=== PATIENT | male | born 1940 | race Caucasian/White ===

== ENCOUNTER 2019-10-24 11:39 | Outpatient (CLI) | payer MEDICARE ==
[~2019-10-24 11:39] MED LIST: Magnevist 469MG/ML 20 ML VIAL ONE
--- NOTE | 2019-10-24 16:09 | MRI ---
MR OF THE ABDOMEN WITH AND WITHOUT CONTRAST: 10/24/19 INDICATION: History of cholelithiasis, prostate cancer and lower GI bleed. TECHNIQUE: Multiplanar and multisequence MR images were obtained in the abdomen with and without contrast utiliz ing 17 mL of Multihance. Respiratory motion artifact heavily degrades image detail on the exam. FINDINGS: There is moderate cardiomegaly. There is a small pericardial effusion. There is focus of susceptibility seen within the lateral left hepatic lobe on image 23 of series 8 wh ich is nonspecific and may reflect a focal hepatic calcification such as a granuloma. This measures approximately 1.5 cm in size. No additional focal hepatic lesion is evident. There are prominent gallstones within the gallbladder. Both measuring 4.2 cm. No pericholecystic flui d is evident. The degree of respiratory motion artifact limits evaluation of the common bile duct or intraluminal stones; however, it is suspected that the patient does have choledocholithiasis at the l evel of the mid common bile duct with the stone measuring approximately 0.7 x 1.5 cm on image 13 of s eries 2. Smaller additional stones are suspected within the mid to distal common bile duct. The commo n bile duct is dilated measuring up to 9 mm. There is some mild intrahepatic biliary ductal dilatatio n. The main pancreatic duct is of normal caliber. Visualized aspect of the adrenal glands are normal appearing. Bilateral renal cysts. The spleen measu res 11.8 cm. No lymphadenopathy or free fluid is identified. No definite marrow signal abnormality is noted. IMPRESSION: 1. Cholelithiasis and choledocholithiasis with mild intrahepatic and extrahepatic biliary ductal dilatation. 2. Focus of susceptibility artifact within the left hepatic lobe may reflect a tiny calcified gr anuloma. 3. Bilateral renal cysts. 4. Limitations to the exam. POS: [facility]
== END 2019-10-24 11:40 | disposition home or self-care (01) ==
LOC: MRI 11:39
PROVIDERS: ATTEND Internal Medicine Gastroenterology
DX: C61 Malignant neoplasm of prostate (principal); K80.20 Calculus of gallbladder without cholecystitis without obstruction; R94.5 Abnormal results of liver function studies; R63.4 Abnormal weight loss; K76.89 Other specified diseases of liver; K92.2 Gastrointestinal hemorrhage, unspecified; K80.50 Calculus of bile duct without cholangitis or cholecystitis without obstruction; N28.1 Cyst of kidney, acquired
CPT/HCPCS: 74183; A9579

== ENCOUNTER 2019-10-27 10:20 | Inpatient (IN) | payer MEDICARE ==
[~2019-10-27 10:20] MED LIST changes: +Glycopyrrolate 0.2 MG/ML 5 ML SYRINGE ONE; +Lidocaine 1% PF 5 ML VIAL ONE; -Magnevist 469MG/ML 20 ML VIAL ONE; +Ondansetron PF 4 MG/2 ML Vial ONE; +PHENYLEPHRINE-NS 100 MCG/ML 10 ML SYRINGE ONE; +PROPOFOL 200 MG/20 ML VIAL ONE; +Rocuronium Bromide 10 MG/ML (10ML VIAL) ONE; +Succinylcholine Chloride 20 MG/ML 10 ml SYRINGE FS ONE
[2019-10-27] MEDS ORDERED: Iothalamate Meglumine 60% 30 ML VIAL FS ONE ×2 (11:41→14:33)
[2019-10-27 13:31] VITALS: BMI 30.2
[2019-10-27] MEDS ORDERED: Dextrose 5% in Water 1,000 ML IV SCH (13:45)
[2019-10-27] MEDS ORDERED: HumaLOG 300 UNITS/3 ML VIAL SC PRN (13:46)
[2019-10-27] MEDS ORDERED: Dextrose 50% Abboject 50 ML SYRINGE SLOW IVP PRN (13:46)
[2019-10-27] MEDS ORDERED: Dextrose 5% in Water 1,000 ML IV PRN (13:46)
--- NOTE | 2019-10-27 14:30 | HP ---
CHIEF COMPLAINT: Gallstone. HISTORY OF PRESENT ILLNESS: He is an 79-year-old male, who is a direct admission from [facility]/Dr. Gaston, for choledocholithiasis. The patient and his provide the history of a few weeks of abnormal liver function tests, and fevers associated with activities as high 103 degrees. They state that he has been seen by a general surgeon, by primary care, and was referred to Dr. Gaston due to an abnormal CT scan demonstrating gallstones. As part of the workup, the patient underwent an MRCP on Sunday, which shows choledocholithiasis. The patient was contacted to come to the hospital today for ERCP. The patient and his report back pain that have been ongoing for few years, that has been attributed to a nerve problem in his neck. They noticed that he has lost at least 10 pounds since the beginning of the year. They also note that he has some dyspnea on exertion, however, that has worsened over the past week or so. They deny any nausea, vomiting, diarrhea, or chest pain. Denies any significant lower extremity swelling, they report that it is managed with Lasix. PAST MEDICAL HISTORY: 1. Coronary artery disease with history of an AK. 2. Lower GI bleed with history of colectomy. 3. Diverticulosis. 4. Prostate cancer. 5. Diabetes mellitus, diet-controlled. 6. Peripheral neuropathy. 7. Dyslipidemia. 8. Memory changes -per patient's , degree unknown PAST SURGICAL HISTORY: 1. CABG. 2. Colectomy. 3. Appendectomy. SOCIAL HISTORY: The patient is . Denies any tobacco. Uses one beer per day, his is his surrogate decision maker and he is a full code. ALLERGIES: NO KNOWN ALLERGIES TO MEDICATION. CURRENT MEDICATIONS: Reconciled with the list provided by the patient's ; 1. Aspirin 81 mg daily. 2. Atorvastatin 20 mg at bedtime. 3. Carvedilol 3.125 mg b.i.d. 4. Ferrous sulfate 325 mg daily. 5. Finasteride 5 mg at bedtime. 6. Folic acid 1 mg at bedtime. 7. Furosemide 40 mg in the morning and at noon. 8. Gabapentin 300 mg daily. 9. Lisinopril 5 mg at bedtime. 10. Potassium chloride 20 mEq daily. 11. Tamsulosin 0.4 mg at bedtime. 12. Vitamin B12 50 mcg at bedtime. 13. Prolia injection every 6 months. 14. Lupron injection every 6 months. FAMILY HISTORY: Significant for cancer. REVIEW OF SYSTEMS: Positive for back pain, worsening dyspnea on exertion, unintentional weight loss of at least 10 pounds this year. Negative for nausea, vomiting, diarrhea, chest pain. All remaining review of systems are reviewed and negative. PHYSICAL EXAMINATION: VITAL SIGNS: Blood pressure 124/74, temperature 98.1, pulse 81, respirations 16 , sat 95% on room air. GENERAL: Awake, alert, responsive, in no apparent distress, able to speak in full sentences. HEENT: Pupils are equal and round. No noted scleral icterus. Oral mucosa is pink and slightly dry. NECK: Supple. Nontender. LYMPHATICS: No palpable cervical or supraclavicular lymphadenopathy. LUNGS: Clear to auscultation bilateral with good air movement. HEART: Normal S1 and S2. Regular rate and rhythm. No significant murmur. ABDOMEN: Soft, present bowel sounds, non-tender, nondistended. EXTREMITIES: No pitting edema. VASCULAR: 2+ radial pulses. SKIN: No visible rashes. NEUROLOGIC: No focal deficits. PSYCH: Appears euthymic. LABORATORY DATA: There is no labs in our system available for review. MRCP report reviewed, which demonstrates choledocholithiasis and cholelithiasis with mild intrahepatic and extrahepatic biliary ductal dilatation, focus of susceptibility artifact within the left hepatic lobe may be a tiny calcified granuloma, bilateral renal cysts. IMPRESSION: 1. Choledocholithiasis with intermittent fevers concerning for infection such as cholangitis or cholecystitis. 2. Coronary artery disease, asymptomatic. 3. History of lower GI bleed, status post colectomy, asymptomatic. 4. Prostate cancer, undergoing treatment. 5. Diabetes mellitus, diet-controlled. 6. Peripheral neuropathy. 7. Dyslipidemia. PLAN: 1. Inpatient status in the hospital due to concern for infection, and need for cultures and antibiotics. 2. Consultation with Dr. Bills, who plans ERCP. 3. Blood cultures, starting on Zosyn due to concern for fevers and infection, following cultures. 4. Obtain current labs including CBC, CMP, INR, blood cultures, UA and urine culture. 5. Continuing the appropriate usual home medications when the patient can take p.o. 6. Gentle IV fluid hydration. 7. N.p.o. until procedure if it is going to be today. 8. Accuchecks and sliding scale insulin if needed. 8. DVT prophylaxis. The patient is ambulatory. Hold on pharmacologic DVT prophylaxis due to procedure. 9. GI prophylaxis not indicated. 10. Code status is full. Surrogate decision maker is the patient's . The patient is at high risk given age comorbidities and current presentation to include the fevers. As we need to monitor blood cultures, monitor for fever, treat with antibiotics and ERCP to evaluate and hopefully treat the choledocholithiasis, thus patient is being placed in inpatient status. Reviewed the plan of care with Dr. Bills, the patient and his . No questions or further needs. Job ID: [id number] MTDD
[2019-10-27] MEDS ORDERED: Indomethacin 50 MG SUPP ONE (14:35)
[2019-10-27 14:53] LABS: INR-International Normal Ratio 0.9; Prothrombin Time 12.3 SEC (12.0-14.7)
[2019-10-27] MEDS: Furosemide 40 MG TAB PO SCH (14:55)
[2019-10-27] MEDS ORDERED: Fentanyl 100 MCG/2 ML VIAL ONE (15:04)
[2019-10-27 15:10] LABS: ALT (SGPT) 33 U/L (8-55); AST (SGOT) 28 U/L (5-34); Alkaline Phosphatase 337 U/L (40-110); Anion Gap 13 mmol/L (10-20); BUN (Urea Nitrogen) 13 mg/dL (8.4-25.7); Bilirubin, Total 1.9 mg/dL (0.2-1.2); Calc. Creatinine Clearance 84 mL/min (70-130); Calcium 9.2 mg/dL (7.8-10.44); Carbon Dioxide 26 mmol/L (23-31); Chloride 102 mmol/L (98-107); Estimated GFR-MDRD 88; Globulin 3.8 g/dL (2.4-3.5); Glucose 112 mg/dL (83-110); Lipase 14 U/L (8-78); Potassium 4.2 mmol/L (3.5-5.1); Protein, Total 7.8 g/dL (5.8-8.1); Sodium 137 mmol/L (136-145)
[2019-10-27 15:12] LABS: #Eosinphils 0.2 thou/uL (0.0-0.7); #Lymphocytes 1.7 thou/uL (1.20-3.40); #Monocytes 0.7 thou/uL (0.11-0.59); #Neutrophils 3.6 thou/uL (1.40-6.50); %Basophils 0.3 % (0.0-1.0); %Eosinophils 3.9 % (0.0-10.0); %Lymphocytes 26.6 % (21.0-51.0); %Monocytes 11.7 % (0.0-10.0); %Neutrophils 57.6 % (42.0-75.0); Hemoglobin 12.9 g/dL (14.0-18.0); Mean Corpuscular HGB CONC 33.8 g/dL (32.0-36.0); Mean Corpuscular Hemoglobin 34.1 pg (27.0-31.0); Mean Platelet Volume 7.2 fL (7.4-10.4); Platelet Count 109 thou/uL (130-400); RBC Distribution Width 12.7 % (11.5-14.5); Red Blood Cell (RBC) Count 3.77 mill/uL (4.70-6.10); White Blood Cell (WBC) Count 6.3 thou/uL (4.8-10.8)
[2019-10-27] MEDS ORDERED: Piperacillin/Tazobactam 3.375 GM VIAL ONE (15:21)
[2019-10-27] MEDS: Sodium Chloride 0.9% 1,000 ML IV SCH ×2 (15:21→18:25)
[2019-10-27] MEDS ORDERED: Sodium Chloride 0.9% 100 ML ONE (15:21)
[2019-10-27 15:59] LABS: Bilirubin Negative (Negative); Blood, Urine Negative (Negative); Clarity Clear (Clear); Glucose, Urine (Dipstick) Normal (Negative); Leukocyte Negative Leu/uL (Negative); Nitrite Negative (Negative); Protein, Urine (Dipstick) 20 mg/dL (Neg-Trace); Urobilinogen Normal mg/dL (Less than 2)
--- NOTE | 2019-10-27 16:40 | RAD ---
ERCP 9 views: 10/27/2019 HISTORY: 79-year-old male with choledocholithiasis and cholelithiasis. FINDINGS: Total of 9 fluoroscopic spot images submitted. Initial image demonstrates contrast partially filling the common bile duct and common hepatic duct, with thin catheter reaching superiorly into one of the branches of the hepatic ducts. There are multiple filling defects consistent with multiple calcul i within the common duct demonstrated on recent MRCP. Subsequent images demonstrate inflation of the balloon near the level of the cystic duct takeoff, then being swept inferiorly. The final image d emonstrates an unusual finding of a horizontal array of 3 tiny filling defects in the inferior portion of the common bile duct, slightly superior to the ampulla. It is uncertain whether these repr esent residual tiny calculi, air bubbles, or less likely artifact. No other filling defects are present. There continues to be mild dilation of the common bile duct and common hepatic duct. Partial filling of cystic duct. No dilation of biliary radicles on the final image. The duodenum is not demonstrated on the final image. Therefore, uncertainty whether there is contrast in the duodenum. IMPRESSION: 1. Choledocholithiasis. 2. Balloon sweeping extraction of the choledocholithiasis. 3. Uncertain finding on the final image. See above comments.
[2019-10-27] MEDS ORDERED: Promethazine HCl 25 MG/ML VIAL SLOW IVP PRN (16:45)
[2019-10-27] MEDS ORDERED: Ondansetron HCl/PF 4 MG/2 ML Vial IVP PRN (16:45)
[2019-10-27] MEDS ORDERED: Promethazine HCl 25 MG/ML VIAL IM PRN (16:45)
[2019-10-27] MEDS: Piperacillin/Tazobactam 3.375 GM in Sodium Chloride 0.9% 100 ML IVPB SCH ×2 (17:52→23:43)
[2019-10-27] MEDS: Finasteride 5 MG TAB PO SCH (19:57)
[2019-10-27] MEDS: Carvedilol 3.125 MG TAB PO SCH (19:57)
--- NOTE | 2019-10-27 20:35 | CON ---
DATE OF CONSULTATION: REASON FOR CONSULT: Choledocholithiasis. HISTORY OF PRESENT ILLNESS: Mr. Brice is an 79-year-old gentleman, who was seen by Dr. Gaston on 10/15. Apparently, he has had elevated bilirubin and abnormal LFTs, initially the bilirubin was 3.4 with alk phos of 444 earlier in September. He had lost about 10 pounds, but the main complaint when he had gone to see his doctor, Dr. Coleman, for was that he had been having fevers intermittently for a couple of months up to 103.4. 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 He ultimately had a CAT scan at an outside facility that showed a small aortic aneurysm. It showed apparently gallstones. He had seen a surgeon, Dr. Humphrey, in the [place], [place], who felt that gallbladder surgery was not a good idea in light of his comorbidities. In talking to the patient, most history comes from the family as he has some dementia, although he is oriented to where he is. He has had fatigue, weight loss about 10 pounds. He has had some right shoulder and back pain, which he has been treating with a topical muscle cream. He has had no overt nausea or vomiting. No overt rigors. They have noticed his urine will be quite dark in the mornings often, but they have not noted any jaundice and he denies any pruritus. Other recent medical issues include history of heart disease, for which he had bypass in 2005. He had [place] in . He has an ejection fraction of 45%. He has AFib and 3 years ago, they were to stop his anticoagulation as he kept having GI bleeds and so he had a Watchman procedure performed. At that same time, he had a partial colectomy 4 to 5 years ago for bleeding. His other active medical issue is prostate cancer, it is being observed over the past 4 to 5 years, but recently he was started on Lupron, finasteride, and tamsulosin. Interestingly, he denies any overt abdominal pain at this time. He denies any dysphagia or odynophagia. Apparently, he has had a chest x-ray with his primary physician, which has been normal and a CAT scan did not reveal malignancy or other abnormalities. Labs on 10/21, he had a white count of 4, hemoglobin 11.5, and platelet count of 102. Comprehensive metabolic profile was notable for a bilirubin of 1.5, alk phos of 418, AST and ALT of 43 and 45. He also had an MR cholangiogram performed on Sunday and that was vastly abnormal with findings of cholelithiasis, choledocholithiasis, intra and extrahepatic ductal dilatation, calcified granuloma in the liver. Some of the images were degraded by motion artifact. I actually have reviewed these films and would agree. The largest gallstones in the gallbladder were 4.2 cm in size. Common bile duct visualization is poor, but the radiologist felt there was choledocholithiasis at the level of the mid common bile duct stone measuring 0.7 x 1.5 cm and some smaller stones in the distal common bile duct. PAST MEDICAL HISTORY: Abdominal aortic aneurysm less than 3 cm, hypertension, hyperlipidemia, previous AZ, prostate cancer, and dementia. PAST SURGICAL HISTORY: Subtotal colectomy in 2015, CABG in 2005, appendectomy in 1950s, Watchman procedure the same year as was the subtotal colectomy, previous cardiac cath with stent, EF reported at 45% per daughter. DIAGNOSTIC STUDIES: 09/19/2019, CT abdomen pelvis is as noted in the HPI. MEDICATIONS: At home, 1. Atorvastatin. 2. B12. 3. Carvedilol. 4. Ferrous sulfate. 5. Finasteride. 6. Folic acid. 7. Furosemide. 8. Gabapentin. 9. Lisinopril. 10. Lupron. 11. Potassium chloride. 12. Tamsulosin. ALLERGIES: NO KNOWN DRUG ALLERGIES. SOCIAL HISTORY: Rare alcohol, liquor, and beer. No smoking. Drugs, none. Marital status, . His is here at the bedside as well as his granddaughter. REVIEW OF SYSTEMS: Fever, weight loss, and fatigue. Medications here. Orders have been put to start Zosyn, carvedilol, Lasix, Neurontin, Humalog, and normal saline at 75. PHYSICAL EXAMINATION: VITAL SIGNS: Temperature is 98, pulse 81, and blood pressure is 124/74. GENERAL: He is nonicteric. He is resting comfortably in the side of the bed. He does not appear septic or ill. NECK: Supple. No adenopathy. LUNGS: Clear. HEART: Regular rate and rhythm without clicks or murmurs. ABDOMEN: Soft. No palpable hepatosplenomegaly noted. There is mild fullness in right upper quadrant, mild tenderness, but no rebound or guarding. EXTREMITIES: No clubbing, cyanosis, or edema. LABORATORIES: Here pending. ASSESSMENT: 1. Choledocholithiasis. 2. Recurrent fever, probably related to the choledocholithiasis. At times, he has had very dark urine, but it is unclear if this is the case. 3. Very large gallstones measuring 4 cm in size. 4. CAT scan with no evidence of malignancy. 5. Reportedly previous negative chest x-ray with negative pulmonary exam now. PLANS: I agree with plans for hospitalist to get labs, cultures, and start him on IV fluids. We will keep him n.p.o. with plan for ERCP today. I have discussed this with the patient, the patient's , and granddaughter at the bedside. The risks of ERCP including pancreatitis, inability to remove the large stones if they are truly almost 2 cm in size and the possible need for just a stent placement at this time. The risk of anesthetic complications due to his underlying coronary artery disease and the likely need for cholecystectomy once this is completed. They understand and wish to proceed. Job ID: [id number]
--- NOTE | 2019-10-27 21:17 | CON ---
DATE OF CONSULTATION: 10/27/2019 CHIEF COMPLAINT: Cholelithiasis. HISTORY OF PRESENT ILLNESS: The patient is an 79-year-old obese white male. He has a recent history of abnormal liver function tests and intermittent fevers up to 103 degrees. They live near [place] and see physicians in [place]. He had apparently seen a general surgeon and in some fashion was considering surgery at that institution. The patient saw Dr. Gaston, who had obtained an MRCP revealing large gallstones (4.5 cm) and evidence of choledocholithiasis. Recent bilirubin was 1.5 with an alkaline phosphatase of 450. The patient was direct admitted from the hospital today for ERCP per Dr. Bills. Dr. Bills has already seen the patient and plans to proceed with ERCP today. They note some degree of weight loss, but believes this may have been secondary to increase of his Lasix dose. He denies nausea or vomiting. PAST MEDICAL HISTORY: 1. Coronary artery disease with history of myocardial infarction (cardiac ejection fraction within the past 6 months was 45%). 2. History of lower GI bleed. 3. Diverticular disease. 4. Prostate cancer. 5. Diabetes mellitus. 6. Peripheral neuropathy. 7. Dyslipidemia. PAST SURGICAL HISTORY: Coronary artery bypass graft, colectomy, appendectomy. His tells me that he had complications following his colon surgery that kept him in the hospital for a couple of months. PERSONAL AND SOCIAL HISTORY: He is and is present at bedside. He has children. His granddaughter is also present at bedside. He does not smoke. He drinks a beer per day roughly. ALLERGIES: NO KNOWN DRUG ALLERGIES. CURRENT MEDICATIONS: Reviewed. He is on; 1. Aspirin. 2. Atorvastatin. 3. Carvedilol. 4. Ferrous sulfate. 5. Finasteride. 6. Folic acid. 7. Furosemide. 8. Gabapentin. 9. Lisinopril. 10. Potassium chloride. 11. Tamsulosin. 12. Prolia. 13. Lupron. REVIEW OF SYSTEMS: Otherwise unremarkable. FAMILY HISTORY: Noncontributory. PHYSICAL EXAMINATION: VITAL SIGNS: He is afebrile. Vital signs within normal limits. GENERAL: He is a well-developed, well-nourished, somewhat obese white male, resting in bed, in no acute distress. He is hard of hearing. I have to speak loudly for him to hear. Most of the conversation was held with his . HEAD, EYES, EARS, NOSE, AND THROAT: Unremarkable. NECK: Supple without mass or tenderness. LUNGS: Clear to auscultation throughout. CARDIAC: Regular rate and rhythm without murmur. ABDOMEN: Obese, but soft and nontender. He has a well-healed lower midline abdominal incision. There are no upper abdominal incisions. EXTREMITIES: Unremarkable except that he has significant hyperpigmentation consistent with a history of venous insufficiency. LABORATORY DATA: Labs from today have been obtained and are pending. I reviewed labs from Dr. Gaston's office from within the past few days. ASSESSMENT: The patient with large gallstones present within his gallbladder as well as what appears to be choledocholithiasis on his MRCP. This would correlate with his elevated liver function tests. Dr. Bills plans to proceed with ERCP at this time. In light of the large gallstones, I would recommend proceeding with laparoscopic cholecystectomy. His intermittent febrile episodes are potentially concerning for intermittent cholecystitis, although this would be difficult to discern. He apparently has some degree of early dementia and this would make it more difficult to discern his symptoms. I recommend laparoscopic cholecystectomy tomorrow depending upon the ERCP findings. I discussed this in detail with the patient's . The patient was present during the discussion, but I am not sure how much he was listening. Job ID: [id number]
[2019-10-28 06:11] LABS: #Eosinphils 0.2 thou/uL (0.0-0.7); #Lymphocytes 1.1 thou/uL (1.20-3.40); #Monocytes 0.5 thou/uL (0.11-0.59); %Basophils 0.2 % (0.0-1.0); %Eosinophils 4.5 % (0.0-10.0); %Lymphocytes 22.2 % (21.0-51.0); Hemoglobin 11.4 g/dL (14.0-18.0); Mean Corpuscular HGB CONC 33.1 g/dL (32.0-36.0); Mean Corpuscular Hemoglobin 33.6 pg (27.0-31.0); Mean Platelet Volume 7.2 fL (7.4-10.4); Platelet Count 85 thou/uL (130-400); RBC Distribution Width 12.8 % (11.5-14.5); Red Blood Cell (RBC) Count 3.39 mill/uL (4.70-6.10); White Blood Cell (WBC) Count 4.9 thou/uL (4.8-10.8)
[2019-10-28 06:32] LABS: ALT (SGPT) 25 U/L (8-55); AST (SGOT) 23 U/L (5-34); Albumin 3.2 g/dL (3.4-4.8); Alkaline Phosphatase 260 U/L (40-110); Anion Gap 13 mmol/L (10-20); BUN (Urea Nitrogen) 18 mg/dL (8.4-25.7); Bilirubin, Total 1.9 mg/dL (0.2-1.2); Calc. Creatinine Clearance 60 mL/min (70-130); Calcium 8.2 mg/dL (7.8-10.44); Carbon Dioxide 24 mmol/L (23-31); Chloride 105 mmol/L (98-107); Estimated GFR-MDRD 59; Globulin 3.1 g/dL (2.4-3.5); Glucose 114 mg/dL (83-110); Lipase 9 U/L (8-78); Potassium 4.1 mmol/L (3.5-5.1); Protein, Total 6.3 g/dL (5.8-8.1); Sodium 138 mmol/L (136-145)
[2019-10-28] MEDS: Potassium Chloride 20 MEQ TAB PO SCH (08:16)
[2019-10-28] MEDS: Lisinopril 5 MG TAB PO SCH (08:17)
[2019-10-28] MEDS: Furosemide 40 MG TAB PO SCH ×2 (08:17→15:11)
[2019-10-28] MEDS: Tamsulosin HCl 0.4 MG CAP PO SCH (08:17)
[2019-10-28] MEDS: Gabapentin 300 MG CAP PO SCH (08:17)
[2019-10-28] MEDS: Carvedilol 3.125 MG TAB PO SCH ×2 (08:18→20:50)
[2019-10-28] MEDS: Piperacillin/Tazobactam 3.375 GM in Sodium Chloride 0.9% 100 ML IVPB SCH ×4 (08:25→23:44)
[2019-10-28] MEDS ORDERED: Piperacillin/Tazobactam 3.375 GM in Sodium Chloride 0.9% 100 ML IVPB SCH (08:30)
[2019-10-28] MEDS ORDERED: Potassium Chloride 20 MEQ TAB PO SCH (09:00)
[2019-10-28] MEDS ORDERED: Lisinopril 5 MG TAB PO SCH (09:00)
--- NOTE | 2019-10-28 09:12 | PRG ---
DATE OF SERVICE: 10/28/2019 SUBJECTIVE: Mr. Brice is not complaining of any abdominal pain this morning. He has been afebrile. Plan is for surgery this afternoon. OBJECTIVE: VITAL SIGNS: Temperature 98.0, pulse 63, blood pressure 119/64, and 93% oxygen saturation on room air. GENERAL: No acute distress, in good spirits, pleasantly confused. HEART: Regular rate and rhythm. LUNGS: Clear to auscultation bilaterally. ABDOMEN: Bowel sounds are present. Soft, nontender to palpation throughout. EXTREMITIES: No peripheral edema. LABORATORY STUDIES: Hemoglobin 11.4, WBC 4.9, platelets 85. INR 0.9. Sodium 138, potassium 4.1, BUN 18, creatinine 1.18, glucose 119, total bilirubin stable at 1.9, alkaline phosphatase down to 260, AST 23, ALT 25. Lipase only 9. ASSESSMENT AND PLAN: 1. Choledocholithiasis, now status post successful endoscopic retrograde cholangiopancreatography with biliary sphincterotomy and stone extraction performed by Dr. Bills yesterday, 10/27/2019. 2. Cholelithiasis. The patient is set for cholecystectomy this afternoon from what I understand. There is no evidence of post endoscopic retrograde cholangiopancreatography pancreatitis. GI is going to sign off, but please call back anytime with questions or concerns. Job ID: [id number]
[2019-10-28] MEDS ORDERED: EPHEDRINE 25 MG/5 ML SYRINGE ONE (09:48)
[2019-10-28] MEDS ORDERED: Glycopyrrolate 0.2 MG/ML 5 ML SYRINGE ONE (09:48)
[2019-10-28] MEDS ORDERED: PROPOFOL 200 MG/20 ML VIAL ONE (09:48)
[2019-10-28] MEDS ORDERED: Dexamethasone 20 MG/5 ML VIAL ONE (09:48)
[2019-10-28] MEDS ORDERED: Metoprolol Tartrate 5 MG/5 ML VIAL ONE (09:48)
[2019-10-28] MEDS ORDERED: Rocuronium Bromide 10 MG/ML (10ML VIAL) ONE (09:48)
[2019-10-28] MEDS ORDERED: Ondansetron PF 4 MG/2 ML Vial ONE (09:48)
[2019-10-28] MEDS ORDERED: Lidocaine 1% PF 5 ML VIAL ONE (09:48)
--- NOTE | 2019-10-28 11:11 | OP ---
DATE OF PROCEDURE: 10/27/2019 PROCEDURE: ERCP, sphincterotomy, removal of common bile duct stone. PREPROCEDURE DIAGNOSES: 1. History of recurrent fevers of unclear etiology. 2. Intermittent elevation of liver enzymes with MRCP showing choledocholithiasis and cholelithiasis. ANESTHESIA: General endotracheal anesthesia. ANTIBIOTICS: Recently given Zosyn before the procedure. POSTPROCEDURE DIAGNOSES: 1. Normal-appearing ampulla. 2. Multiple filling defects in the common bile duct. 3. Two large stones in the gallbladder with filling of the gallbladder. 4. Multiple stones removed from the duct with 13 and 15 mm balloon. At the conclusion of the procedure, there were no filling defects remaining and there was good drainage of bile endoscopically and radiographically. There were no signs of cholangitis. RECOMMENDATIONS: Continue antibiotics. Surgical consult for cholecystectomy, which was done as planned for tomorrow. PROCEDURE IN DETAIL: Patient was informed of the risks, benefits, and possible complications of endoscopy including perforation, reaction to medication, and aspiration. Informed consent was obtained. The patient was brought to endoscopy suite, where he was sedated in a gradual fashion. Once he was comfortable, he was intubated and placed in a prone position. A bite block was placed inside the orifice. He was given an Indocin suppository and IV fluid bolus. The endoscope was advanced through the oropharynx, esophagus, stomach, and duodenum. The ampulla was brought into view. Cannulation was obtained. Cholangiogram revealed filling defects and poor filling of the intrahepatic ducts. A sphincterotomy was made up to 18 mm in size. A 12 to 15 mm balloon was then used to sweep the duct and two small stones came out of the distal duct. Still, there was poor filling of the common hepatic bile duct and the balloon was advanced up into the just below the bifurcation and then inflated and then the duct was swept and two very large stones were pulled out, probably over a centimeter in size each. The duct was swept further times with just a little bit of debris coming through. Then, two more cholangiograms performed with a 15 mm balloon proximally and then in the distal common bile duct with an 18 mm balloon. Both showed no filling defects and good drainage of contrast both endoscopically and radiographically. There was good hemostasis. The balloons were removed. The stomach and duodenum were desufflated. Patient was then returned to a prone position, extubated, brought to recovery room in stable condition. Job ID: [id number]
[2019-10-28] MEDS ORDERED: Ketorolac Tromethamine 30 MG/ML VIAL ONE (12:29)
[2019-10-28] MEDS ORDERED: Acetaminophen 500 MG TAB ONE (12:30)
[2019-10-28] MEDS ORDERED: Fentanyl 100 MCG/2 ML VIAL ONE (13:39)
[2019-10-28] MEDS ORDERED: Lidocaine 1% w/Epinephrine 1:100K 20 ML VIAL ONE (13:42)
[2019-10-28] MEDS ORDERED: Bupivacaine 0.25% HCL 30 ML VIAL ONE (13:42)
[2019-10-28] MEDS ORDERED: Ondansetron HCl/PF 4 MG/2 ML Vial IVP PRN (15:55)
[2019-10-28] MEDS ORDERED: Promethazine HCl 25 MG/ML VIAL IM PRN (15:55)
[2019-10-28] MEDS ORDERED: Promethazine HCl 25 MG/ML VIAL SLOW IVP PRN (15:55)
[2019-10-28] MEDS ORDERED: Morphine 4 MG/ML VIAL SLOW IVP PRN (16:02)
[2019-10-28] MEDS ORDERED: Morphine 2 MG/ML SYRINGE SLOW IVP PRN (16:02)
[2019-10-28] MEDS: Sodium Chloride 0.9% 1,000 ML IV SCH (16:59)
[2019-10-28] MEDS: Finasteride 5 MG TAB PO SCH (20:51)
--- NOTE | 2019-10-28 21:09 | PDOC.HOSPP ---
- Subjective Encounter Date: 10/28/19 Subjective: Doing well post-op. No specific complaints. - Objective Vital Signs & Weight: Vital Signs (12 hours) Temp Pulse Resp BP Pulse Ox 10/28/19 16:40 97.8 F 79 20 145/90 H 100 10/28/19 11:42 97.7 F 69 18 124/75 96 Weight Admit Weight 187 lb Weight 187 lb I&O: 10/27/19 10/28/19 10/29/19 06:59 06:59 06:59 Intake Total 1275 1205 Output Total 500 275 Balance 775 930 Result Diagrams: 10/28/19 05:48 10/28/19 05:48 Additional Labs: Accuchecks 10/28/19 10/28/19 10/28/19 17:00 11:45 06:15 POC Glucose 154 H 119 H 119 H 10/27/19 21:22 POC Glucose 161 H Hospitalist ROS - Medication Medications: Active Medications Generic Name Dose Route Start Last Admin Trade Name Freq PRN Reason Stop Dose Admin Carvedilol 3.125 mg 10/27/19 21:00 10/28/19 20:50 Coreg PO 3.125 mg BID AMA Administration Finasteride 5 mg 10/27/19 21:00 10/28/19 20:51 Proscar PO 5 mg HS AMA Administration Furosemide 40 mg 10/27/19 14:00 10/28/19 15:11 Lasix PO Not Given 0900,1400 AMA Gabapentin 300 mg 10/28/19 09:00 10/28/19 08:17 Neurontin PO 300 mg DAILY AMA Administration Sodium Chloride 1,000 mls @ 75 mls/hr 10/27/19 13:45 10/28/19 16:59 Normal Saline 0.9% IV Not Given .[id number] AMA Piperacillin Sod/Tazobactam 100 mls @ 200 mls/hr 10/27/19 18:00 10/28/19 17: 01 Sod 3.375 gm/ Sodium Chloride IVPB Not Given Q6HR AMA Lisinopril 5 mg 10/28/19 09:00 10/28/19 08:17 Zestril PO Not Given DAILY AMA Potassium Chloride 20 meq 10/28/19 09:00 10/28/19 08:16 K-Dur PO 20 meq DAILY AMA Administration Sodium Chloride 10 ml 10/27/19 21:00 10/28/19 20:51 Flush - Normal Saline IVF Not Given Q12HR AMA Tamsulosin HCl 0.4 mg 10/28/19 09:00 10/28/19 08:17 Flomax PO 0.4 mg DAILY AMA Administration - Exam General Appearance: NAD, awake alert Heart: RRR, no murmur, no gallops, no rubs, normal peripheral pulses Respiratory: CTAB, no wheezes, no rales, no ronchi, normal chest expansion, no tachypnea, normal percussion Gastrointestinal: soft, non-tender, non-distended, normal bowel sounds, no palpable masses, no hepatomegaly, no splenomegaly, no bruit Extremities: no cyanosis, no clubbing, no edema Skin: normal turgor Musculoskeletal: no muscle wasting Psychiatric: normal affect Hosp A/P (1) Cholecystitis Code(s): K81.9 - CHOLECYSTITIS, UNSPECIFIED Status: Acute (2) Cholecystitis with cholangitis Code(s): K81.9 - CHOLECYSTITIS, UNSPECIFIED; K83.09 - OTHER CHOLANGITIS Status : Acute (3) Choledocholithiasis Code(s): K80.50 - CALCULUS OF BILE DUCT W/O CHOLANGITIS OR CHOLECYST W/O OBST Status: Acute (4) CAD (coronary artery disease) Code(s): I25.10 - ATHSCL HEART DISEASE OF [place] CORONARY ARTERY W/O ANG PCTRS Status: Acute (5) Diabetes mellitus Code(s): E11.9 - TYPE 2 DIABETES MELLITUS WITHOUT COMPLICATIONS Status: Acute (6) HLD (hyperlipidemia) Code(s): E78.5 - HYPERLIPIDEMIA, UNSPECIFIED Status: Acute (7) Thrombocytopenia Code(s): D69.6 - THROMBOCYTOPENIA, UNSPECIFIED Status: Acute - Plan Doing well post-op. Discussed the post-cholecystectomy diet. Recheck platelets in am. Anticipate discharge tomorrow.
[2019-10-29] MEDS: Acetaminophen 325 MG TAB PO PRN ×2 (02:40→08:19)
[2019-10-29 05:26] LABS: #Lymphocytes 0.9 thou/uL (1.20-3.40); #Monocytes 0.4 thou/uL (0.11-0.59); #Neutrophils 9.3 thou/uL (1.40-6.50); %Basophils 0.4 % (0.0-1.0); %Eosinophils 0.1 % (0.0-10.0); %Lymphocytes 8.5 % (21.0-51.0); %Monocytes 3.3 % (0.0-10.0); %Neutrophils 87.6 % (42.0-75.0); Hemoglobin 10.1 g/dL (14.0-18.0); Mean Corpuscular HGB CONC 31.9 g/dL (32.0-36.0); Mean Corpuscular Hemoglobin 32.8 pg (27.0-31.0); Mean Platelet Volume 7.3 fL (7.4-10.4); Platelet Count 109 thou/uL (130-400); RBC Distribution Width 12.8 % (11.5-14.5); Red Blood Cell (RBC) Count 3.08 mill/uL (4.70-6.10); White Blood Cell (WBC) Count 10.6 thou/uL (4.8-10.8)
[2019-10-29] MEDS: Piperacillin/Tazobactam 3.375 GM in Sodium Chloride 0.9% 100 ML IVPB SCH ×2 (05:45→11:47)
[2019-10-29] MEDS: Sodium Chloride 0.9% 1,000 ML IV SCH (05:46)
[2019-10-29 05:51] LABS: ALT (SGPT) 30 U/L (8-55); AST (SGOT) 37 U/L (5-34); Albumin 3.3 g/dL (3.4-4.8); Alkaline Phosphatase 230 U/L (40-110); Anion Gap 15 mmol/L (10-20); BUN (Urea Nitrogen) 20 mg/dL (8.4-25.7); Bilirubin, Total 1.6 mg/dL (0.2-1.2); Calc. Creatinine Clearance 63 mL/min (70-130); Calcium 7.8 mg/dL (7.8-10.44); Carbon Dioxide 20 mmol/L (23-31); Chloride 108 mmol/L (98-107); Estimated GFR-MDRD 63; Globulin 3.1 g/dL (2.4-3.5); Glucose 168 mg/dL (83-110); Potassium 4.1 mmol/L (3.5-5.1); Protein, Total 6.4 g/dL (5.8-8.1); Sodium 139 mmol/L (136-145)
[2019-10-29] MEDS: HumaLOG 300 UNITS/3 ML VIAL SC PRN ×2 (05:52→11:49)
[2019-10-29 08:02] VITALS: TEMP 97.6
[2019-10-29] MEDS: Furosemide 40 MG TAB PO SCH ×2 (08:16→15:06)
[2019-10-29] MEDS: Carvedilol 3.125 MG TAB PO SCH (08:16)
[2019-10-29] MEDS: Lisinopril 5 MG TAB PO SCH (08:17)
[2019-10-29] MEDS: Gabapentin 300 MG CAP PO SCH (08:17)
[2019-10-29] MEDS: Potassium Chloride 20 MEQ TAB PO SCH (08:18)
[2019-10-29] MEDS: Tamsulosin HCl 0.4 MG CAP PO SCH (08:19)
[2019-10-29 12:32] VITALS: BP 101/55
--- NOTE | 2019-10-29 13:25 | PRG ---
DATE OF SERVICE: 10/29/2019 SUBJECTIVE: Mr. Brice is resting comfortably in his room. He is sitting up and eating lunch. He has a good appetite. He denies pain. is present at bedside as well. PHYSICAL EXAMINATION: VITAL SIGNS: He is afebrile. Pulse is 90, blood pressure 101/55. LUNGS: Clear to auscultation. ABDOMEN: Obese, but soft. Incisions are healing nicely with appropriate maria del carmen-incisional bruising. Dermabond is intact. LABORATORY DATA: His CBC shows a stable hemoglobin of 10.1, with white blood cell count of 10.6. His electrolytes are essentially normal. His CO2 is a little bit low at 20 and chloride is a little bit high at 108. Liver function tests are improved. His bilirubin has dropped from 1.9 down to 1.6. Transaminases are essentially normal and alkaline phosphatase has decreased as well. ASSESSMENT: The patient is stable following laparoscopic cholecystectomy yesterday. ERCP was performed the day previously. He appears to be recovering nicely from both procedures and is stable for discharge home. To avoid problems with postoperative constipation or narcotic issues, I would avoid narcotic medications at discharge. I have encouraged that he take oral Tylenol or ibuprofen as necessary for discomfort. I will see him back in 2 weeks for followup visit. Job ID: [id number]
--- NOTE | 2019-10-30 02:01 | DIS ---
DATE OF ADMISSION: 10/27/2019 DATE OF DISCHARGE: 10/29/2019 DISCHARGE DIAGNOSES: 1. Choledocholithiasis. Cholecystitis. 2. History of coronary disease. 3. Prostate cancer, undergoing treatment. 4. Diabetes mellitus, diet controlled. 5. Dyslipidemia. 6. Peripheral neuropathy. HISTORY OF PRESENT ILLNESS: This patient is an 79-year-old male, who had been experiencing intermittent fevers with abnormal liver function test with outpatient workup revealing evidence of gallstones. The patient was subsequently directly admitted for further investigation with ERCP. The patient did undergo ERCP by Dr. Bills with successful ERCP, sphincterotomy and retrieval of multiple stones with subsequent absence of any evidence of filling defects. Subsequent to that, the patient underwent a cholecystectomy laparoscopically with Dr. Betancourt. The patient did well, was able to return to a regular diet promptly without any difficulties. The patient is considered stable for discharge to home. PHYSICAL EXAMINATION: VITAL SIGNS: On the day of discharge, temperature 97.6 pulse 90, respirations 18, O2 saturation 95% on room air, BP 101/55. GENERAL: He is awake and alert. HEART: Regular rate and rhythm. LUNGS: Clear bilaterally. ABDOMEN: Abdominal incisions appeared healthy with minimal bruising associated with these, but were generally nontender. EXTREMITIES: Had no edema. DISPOSITION: The patient is discharged to home. DISCHARGE INSTRUCTIONS: Diet: He is to have a regular diet, but is cautioned to avoid eating too much fat. Activity: As tolerated. MEDICATIONS: 1. Cipro 500 mg b.i.d. 2. Atorvastatin 40 mg daily. 3. Finasteride 5 mg one p.o. daily. 4. Ferrous sulfate one p.o. daily. 5. Carvedilol 3.125 mg one p.o. b.i.d. 6. Aspirin 1 p.o. daily. 7. Gabapentin 300 mg 1 p.o. daily. 8. Lasix 40 mg 1 p.o. daily. 9. Folic acid 1 p.o. daily. 10. Tamsulosin 0.4 mg 1 p.o. daily. 11. Potassium 20 mEq 1 p.o. daily. 12. Lisinopril 1 p.o. daily. 13. B12 1 p.o. daily. FOLLOWUP: 1. He is to follow up with Dr. Bailee Coleman in [place], Dr. Anton Betancourt in 14 days. 2. He can return to the hospital at any time should he have the need to do so. TIME SPENT: Time spent in discharge activities is greater than 30 minutes. Job ID: [id number]
--- NOTE | 2019-10-30 14:34 | OP ---
DATE OF PROCEDURE: 10/28/2019 PREOPERATIVE DIAGNOSIS: Symptomatic cholelithiasis and recent choledocholithiasis. POSTOPERATIVE DIAGNOSIS: Symptomatic cholelithiasis and recent choledocholithiasis. PROCEDURE PERFORMED: Laparoscopic cholecystectomy. ANESTHESIA: General endotracheal. INDICATIONS: Patient is an 79-year-old white male. He had presented to the hospital with a series of sort of vague symptoms of liver function test abnormality, fevers, and questionable abdominal symptoms. He was recognized to have a large cholelithiasis as well as choledocholithiasis. The day previously, Dr. Bills had performed an ERCP with clearance of his common bile duct. He is taken to the operating room at this time for laparoscopic cholecystectomy recognized that he has two very large gallstones. DESCRIPTION OF OPERATION: Informed consent was obtained. Patient was taken to the operating room, where general endotracheal anesthesia obtained, patient in supine position. Abdomen prepped with ChloraPrep and draped in a sterile fashion. Local anesthetic was infiltrated using a mixture of 1% lidocaine with epinephrine as well as 0.25% Marcaine. A 5 mm right upper quadrant incision was created through which a Veress needle was passed in the peritoneal cavity. Pneumoperitoneum established using carbon dioxide up to pressure of 15 mmHg. A 5 mm trocar port site was passed through the same incision. Laparoscopic camera was passed through this port. Under direct vision, a 12 mm port was placed in the supraumbilical midline. There were adhesions down around the umbilicus and extending inferiorly from prior incision. Under direct vision, 2 additional 5 mm right upper quadrant ports were placed. Attention was turned to the gallbladder. The gallbladder was quite large. It was grasped and retracted in cephalad direction. There was a large volume of fat around the apex of the gallbladder. There was a fair amount of inflammation in this area as well. I carefully dissected through all of this to identify the infundibulum of the gallbladder. This was grasped, retracted laterally and inferiorly. Careful dissection was carried out to identify the cystic duct and cystic artery. The artery was divided between clips leaving two on the side to remain within the abdomen. The duct was quite enlarged. This was also dissected circumferentially. As the common duct had been cleared, I decided not to perform a cholangiogram. The duct was divided between clips. The clips, however, were not close to being able to completely cover the duct. I therefore placed a PDS Endoloop on the side to remain within the abdomen to obtain a secure closure. The gallbladder was dissected out of the gallbladder fossa using careful electrocautery. It was placed in a specimen retrieval bag where it was pulled up through the anterior abdominal wall in the supraumbilical incision. The gallstones were far too large to pull through a 12 mm port site. I extended the skin incision via a vertical midline incision. The underlying fascia was incised as well. I was eventually able to pull the gallbladder and stone through the abdominal wall. The port was replaced through the incision and attention was turned to the right upper quadrant. The gallbladder fossa and all dissected tissue were carefully inspected to ensure hemostasis. The area was thoroughly irrigated. All irrigant was aspirated. All ports and instruments were removed under direct vision. Pneumoperitoneum was carefully evacuated. A 0.25% Marcaine with epinephrine was infiltrated in the port site. Skin edges approximated with 4-0 Monocryl subcuticular suture. Attention was turned to the fascia at the supraumbilical incision and this was closed with a running suture of 0 Vicryl. Dermabond was placed on each of the four incisions. There were no complications. Blood loss was negligible. Patient tolerated the procedure well, was taken to recovery room in stable condition. Job ID: [id number]
--- NOTE | 2019-10-31 12:49 | PQF ---
DATE: 10-31-19 ATTN: DR. SANDIE PERES Please exercise your independent, professional judgment in responding to the clarification form. Clinical indicators are provided on the bottom of this form for your review Please check appropriate box(s): [ ] UTI [ x] Insignificant Lab Values [ ] Other diagnosis [ ] Unable to determine In addition, please specify: Present on Admission (POA): [ ] Yes [ ] No [ ] Unable to determine For continuity of documentation, please document condition throughout progress notes and discharge summary. Thank You. CLINICAL INDICATORS - SIGNS / SYMPTOMS/ LABS are present in the medical record: 10-27-19: Abnormal lab result - Urine cx: E coli; H&P 10/26 (JAZMIN): PLAN - INPT status d/t concern for infection, & need for cultures & antibiotics; Obtain current labs including CBC, CMP, INR, blood cultures, UA & Urine culture. RISK FACTORS: H&P 10-27-19: Fevers, concern for infection, advanced age TREATMENT : H&P 10-27-19: IV antibiotics/START ON ZOSYN, GENTLE IVF HYDRATION (This form is maintained as a part of the permanent medical record) 2014 [employer] All Rights Reserved [email or web address]
--- NOTE | 2019-11-02 15:42 | EKG ---
Test Reason : POST OP Blood Pressure : / mmHG Vent. Rate : 064 BPM Atrial Rate : 078 BPM P-R Int : 000 ms QRS Dur : 094 ms QT Int : 456 ms P-R-T Axes : 000 022 094 degrees QTc Int : 470 ms Atrial fibrillation Possible Inferior infarct , age undetermined Abnormal ECG No previous ECGs available Confirmed by CHUY LANDRY (2) on 11/02/2019 3:42:28 PM Referred By: EUGENIO Confirmed By:CHUY LANDRY
--- NOTE | 2019-11-23 16:57 | OP ---
DATE OF PROCEDURE: 10/28/2019 ADDENDUM: PROCEDURE PERFORMED: Intraoperative core needle biopsy of the liver. At the time of this operation, he was recognized to have both liver function test abnormality as well as an abnormal appearance of his liver. While it did not have a typically cirrhotic or nodular appearance, there were abnormal filmy adhesions to the anterior surface that may have been consistent with some underlying inflammatory etiology. For this reason, I elected to obtain a core needle biopsy of the liver as well. When the cholecystectomy was completed, attention was returned to the liver. The insufflation pressure was decreased down to 8 mmHg. A 14-gauge core biopsy needle was obtained. It was advanced through the abdominal wall through an intercostal gap. Under direct vision, it was advanced into 2 different areas of the right lobe of the liver and 2 separate cores were obtained in the usual fashion. Both specimens were of excellent quality. Meticulous hemostasis was thereafter obtained using electrocautery. The area was irrigated and all irrigant was aspirated. Following that portion of the operation, the ports were removed as dictated in previous portion of this operation. Job ID: [id number]
== END 2019-10-29 15:00 | disposition home or self-care (01) | DRG 419 ==
LOC: SURG A 10:20 → INTOOBSV 10:20 → OBSVTOIN 13:24
PROVIDERS: ADMIT Internal Medicine; ATTEND Family Medicine
PROC: 0FC98ZZ Extirpation of Matter from Common Bile Duct, Via Natural or Artificial Opening Endoscopic (ICD-10-PCS; principal; 2019-10-27)
PROC: BF101ZZ Fluoroscopy of Bile Ducts using Low Osmolar Contrast (ICD-10-PCS; 2019-10-27)
PROC: 0FT44ZZ Resection of Gallbladder, Percutaneous Endoscopic Approach (ICD-10-PCS; 2019-10-28)
PROC: 0FB14ZX Excision of Right Lobe Liver, Percutaneous Endoscopic Approach, Diagnostic (ICD-10-PCS; 2019-10-28)
DX: K80.60 Calculus of gallbladder and bile duct with cholecystitis, unspecified, without obstruction (principal); I25.10 Atherosclerotic heart disease of native coronary artery without angina pectoris; E11.42 Type 2 diabetes mellitus with diabetic polyneuropathy; E78.5 Hyperlipidemia, unspecified; C61 Malignant neoplasm of prostate; D69.6 Thrombocytopenia, unspecified; I25.2 Old myocardial infarction; Z90.49 Acquired absence of other specified parts of digestive tract; Z95.1 Presence of aortocoronary bypass graft; Z79.899 Other long term (current) drug therapy; Z79.82 Long term (current) use of aspirin
CPT/HCPCS: 36415; 36416; 74183; 74330; 80053; 81003; 83690; 85025; 85610; 87040; 87077; 87086; 87186; 88304; 88305; 88307; 88313; 93005; 93010; A9579; C1769; J0690; J1100; J1885; J2001; J2405; J2543; J2704; J3010; J3490; S0020

== ENCOUNTER 2021-10-17 13:34 | Outpatient (CLI) | payer MEDICARE | END 2021-10-17 13:35 | disposition home or self-care (01) | LOC: RAD 13:34 | PROVIDERS: ATTEND Internal Medicine Critical Care Medicine | DX: R06.00 Dyspnea, unspecified (principal); J98.4 Other disorders of lung; J47.9 Bronchiectasis, uncomplicated | CPT/HCPCS: 71046 ==

== ENCOUNTER 2023-06-27 12:33 | Outpatient (CLI) | payer MEDICARE | END 2023-06-27 12:34 | disposition home or self-care (01) | LOC: RAD 12:33 | PROVIDERS: ATTEND Internal Medicine Critical Care Medicine | DX: R06.09 Other forms of dyspnea (principal) | CPT/HCPCS: 71046 ==